=== PATIENT | female | born 1965 | race Caucasian/White ===

== ENCOUNTER → 2016-11-15 | Outpatient (CLI) | payer OTHER ==
--- NOTE | 2016-11-15 14:01 | CPEKG ---
Heart Rate: 75 RR Interval: 800 P-R Interval: 156 QRSD Interval: 106 QT Interval: 408 QTC Interval: 456 P Azle: 85 QRS Azle: 102 T Wave Azle: 69 EKG Severity - ABNORMAL ECG - EKG Impression: SINUS RHYTHM EKG Impression: BIATRIAL ABNORMALITIES EKG Impression: INCOMPLETE RIGHT BUNDLE BRANCH BLOCK EKG Impression: Agree with above Electronically Signed By: Lior Jones 15-Nov-2016 15:11:42
== END ==
LOC: FCP 13:55
PROVIDERS: ATTEND Chiropractor
DX: R94.31 Abnormal electrocardiogram [ECG] [EKG] (principal)